=== PATIENT | female | born 1990 | race Caucasian/White ===

== ENCOUNTER 2018-01-09 20:39 | Emergency (ER) | payer OTHER ==
[~2018-01-09] VITALS: Ht 160 cm; Wt 115.4 kg
[~2018-01-09 20:39] MED LIST: CRANBERRY1 CAP PO; PRENATAL1 TA1 PO
[2018-01-09] MEDS ORDERED: ZOFRAN ODT4 MG PO (20:46)
[2018-01-09 21:00] VITALS: TEMP 98.8
[2018-01-09 21:27] LABS: BASO % 0.3 % (0.0-2.0); EOS # 0.1 (0.0-0.7); EOS % 0.6 % (0-4.0); GRAN % 63.6 % (42.2-75.2); HEMOGLOBIN 12.4 g/dl (12.5-16.0); LYMPH # 2.4 (1.2-3.4); LYMPH % 25.7 % (20.0-51.0); MEAN CELL VOLUME 88 fl (80.0-100.0); MEAN CORPUSCULAR HEMOGLOBIN 31 pg (27.0-31.0); MEAN CORPUSCULAR HGB CONC 35 g/dl (33.0-37.0); MEAN PLATELET VOLUME 11.7 fl (7.4-10.4); MONO # 0.9 (0.1-0.6); MONO % 9.5 % (1.7-9.3); PLATELET COUNT 239 K/mm3 (130-400); RED BLOOD COUNT 4.05 M/mm3 (4.10-5.30); REDCELL DISTRIBUTION WIDTH-CV 12.7 % (11.5-14.5)
[2018-01-09 21:29] LABS: HEMATOCRIT 35.5 % (37.0-47.0)
[2018-01-09 21:37] LABS: ALBUMIN 3.6 gm/dL (3.5-5.0); BILIRUBIN,TOTAL 0.2 mg/dL (0.0-1.0); CALCIUM 9.2 mg/dL (8.4-10.2); CREATININE, serum 0.58 mg/dL (0.52-1.25); POTASSIUM 3.8 mmol/L (3.4-5.0); TOTAL PROTEIN 6.9 gm/dL (6.4-8.2)
[2018-01-09 23:40] VITALS: BP 129/76; PULSE 88
== END 2018-01-09 23:40 | disposition home or self-care (01) ==
LOC: COL.ER 20:39
PROVIDERS: Physician Assistant
DX: O20.0 Threatened abortion (principal); Z3A.14 14 weeks gestation of pregnancy
CPT/HCPCS: J7030

== ENCOUNTER 2018-06-16 22:50 | Outpatient (CLI) | payer OTHER ==
[~2018-06-16] VITALS: Ht 157.5 cm; Wt 122.3 kg
[~2018-06-16 22:50] MED LIST changes: +ZOFRAN ODT4 MG PO
[2018-06-16 23:15] VITALS: BP 109/70; PULSE 93; TEMP 98.4
[2018-06-16] MEDS ORDERED: NATURAL IRON65 MG (23:43)
[2018-06-16] MEDS ORDERED: PROTONIX20 MG PO (23:44)
== END 2018-06-17 00:40 | disposition home or self-care (01) ==
LOC: LDRO 22:50
DX: O62.9 Abnormality of forces of labor, unspecified (principal); Z3A.36 36 weeks gestation of pregnancy

== ENCOUNTER 2018-07-02 07:04 | Inpatient (IN) | payer OTHER ==
[~2018-07-02] VITALS: Ht 162.6 cm; Wt 123.6 kg
[2018-07-02] VITALS (53 sets, daily range): BP systolic 113–148; BP diastolic 56–98; PULSE 65–141; TEMP 97.5–99
[~2018-07-02 07:04] MED LIST changes: +NATURAL IRON65 MG; +PROTONIX20 MG PO
[2018-07-02 08:44] LABS: BASO % 0.3 % (0.0-2.0); EOS # 0.1 (0.0-0.7); EOS % 0.6 % (0-4.0); GRAN # 7.9 (1.4-6.5); GRAN % 74.1 % (42.2-75.2); HEMATOCRIT 38.2 % (37.0-47.0); HEMOGLOBIN 12.9 g/dl (12.5-16.0); LYMPH # 1.9 (1.2-3.4); LYMPH % 17.4 % (20.0-51.0); MEAN CELL VOLUME 92 fl (80.0-100.0); MEAN CORPUSCULAR HEMOGLOBIN 31 pg (27.0-31.0); MEAN CORPUSCULAR HGB CONC 34 g/dl (33.0-37.0); MEAN PLATELET VOLUME 10.7 fl (7.4-10.4); MONO # 0.8 (0.1-0.6); MONO % 7.1 % (1.7-9.3); PLATELET COUNT 249 K/mm3 (130-400); RED BLOOD COUNT 4.16 M/mm3 (4.10-5.30)
[2018-07-02] MEDS ORDERED: PERCOCET 325 MG1 TA2 PO (09:03)
[2018-07-02] MEDS ORDERED: MOTRIN 800800 MG/TAB PO (09:03)
[2018-07-03 03:50] VITALS: BP 114/52; PULSE 86; TEMP 97.7
[2018-07-03 08:30] VITALS: BP 109/62; PULSE 92; TEMP 98.6
[2018-07-03 11:40] VITALS: BP 118/71; PULSE 94; TEMP 97.6
[2018-07-03 17:25] VITALS: BP 111/70; PULSE 98; TEMP 97.4
[2018-07-03 21:45] VITALS: BP 111/60; PULSE 90; TEMP 98
[2018-07-04 07:00] VITALS: BP 114/68; PULSE 70; TEMP 98.1
[2018-07-04] MEDS ORDERED: NORCO 325 MG-51 TAB PO (12:26)
== END 2018-07-04 16:29 | disposition home or self-care (01) | DRG 807 ==
LOC: OB 07:04 → LDR 07:04 → OB 22:00
PROVIDERS: Obstetrics & Gynecology
PROC: 10E0XZZ Delivery of Products of Conception, External Approach (ICD-10-PCS; principal; 2018-07-02)
PROC: 0KQM0ZZ Repair Perineum Muscle, Open Approach (ICD-10-PCS; 2018-07-02)
PROC: 3E033VJ Introduction of Other Hormone into Peripheral Vein, Percutaneous Approach (ICD-10-PCS; 2018-07-02)
PROC: 10907ZC Drainage of Amniotic Fluid, Therapeutic from Products of Conception, Via Natural or Artificial Opening (ICD-10-PCS; 2018-07-02)
DX: O70.1 Second degree perineal laceration during delivery (principal); Z37.0 Single live birth; O99.824 Streptococcus B carrier state complicating childbirth; O99.214 Obesity complicating childbirth; Z3A.39 39 weeks gestation of pregnancy
CPT/HCPCS: J2540; J2590; J7120